=== PATIENT | female | born 1965 | race Caucasian/White ===

== ENCOUNTER 2017-05-04 21:19 | Emergency (ER) | payer BC, OTHER ==
[2017-05-04] MEDS ORDERED: Orphenadrine Citrate 60 MG/2 ML VIAL ONE (21:53)
[2017-05-04] MEDS ORDERED: Ketorolac Tromethamine 60 MG/2 ML VIAL ONE (21:53)
== END 2017-05-04 22:15 | disposition home or self-care (01) ==
LOC: NAV ERS 21:19
DX: M54.5 Low back pain (principal); F41.9 Anxiety disorder, unspecified; Z79.899 Other long term (current) drug therapy
CPT/HCPCS: 96372; J1885; J2360

== ENCOUNTER 2020-07-02 19:06 | Emergency (ER) | payer BC, MEDICARE ==
[2020-07-02] MEDS ORDERED: Adacel (T-DAP) 0.5 ML SYRINGE ONE (19:28)
== END 2020-07-02 19:42 | disposition home or self-care (01) ==
LOC: NAV ERS 19:06
DX: S01.81XA Laceration without foreign body of other part of head, initial encounter (principal); F41.9 Anxiety disorder, unspecified; Z79.899 Other long term (current) drug therapy; W19.XXXA Unspecified fall, initial encounter
CPT/HCPCS: 90715

== ENCOUNTER 2020-07-02 21:12 | Emergency (ER) | payer MEDICARE ==
[2020-07-02] MEDS ORDERED: Lidocaine 1% w/Epinephrine 1:100K 30 ML VIAL ONE (21:20)
[2020-07-02] MEDS ORDERED: Lidocaine 1% (PF) 30 ML VIAL ONE (21:33)
[2020-07-02] MEDS ORDERED: Bacitracin 1 PK ONE (21:52)
== END 2020-07-02 21:52 | disposition home or self-care (01) ==
LOC: NAV ERS 21:12
DX: S01.81XA Laceration without foreign body of other part of head, initial encounter (principal); F41.9 Anxiety disorder, unspecified; Z79.899 Other long term (current) drug therapy
CPT/HCPCS: 12013; 90471; 90715; J2001

== ENCOUNTER 2021-02-17 19:48 | Emergency (ER) | payer MEDICARE ==
[2021-02-17] MEDS ORDERED: Acetaminophen/Codeine 30-300mg Tablet ONE (20:08)
== END 2021-02-17 21:00 | disposition home or self-care (01) ==
LOC: NAV ERS 19:48
DX: S83.91XA Sprain of unspecified site of right knee, initial encounter (principal); S80.01XA Contusion of right knee, initial encounter; M79.7 Fibromyalgia; Z79.899 Other long term (current) drug therapy; W19.XXXA Unspecified fall, initial encounter

== ENCOUNTER 2021-06-06 03:51 | Emergency (ER) | payer MEDICARE ==
[2021-06-06 04:16] LABS: Hemoglobin 13.3 g/dL (12.0-16.0); Mean Corpuscular HGB CONC 30.5 g/dL (32.0-36.0); Mean Corpuscular Hemoglobin 28.7 pg (27.0-31.0); Mean Corpuscular Volume 94.2 fL (78.0-98.0); Mean Platelet Volume 13.2 fL (7.4-10.4); Platelet Count 219 thou/uL (130-400); RBC Distribution Width 13.5 % (11.5-14.5); Red Blood Cell (RBC) Count 4.65 mill/uL (4.20-5.40); White Blood Cell (WBC) Count 10.5 thou/uL (4.8-10.8)
[2021-06-06 04:19] LABS: Bilirubin Negative (Negative); Blood, Urine Large (Negative); Clarity Slightly Cloudy (Clear); Glucose, Urine (Dipstick) Negative (Negative); Ketone, Urine Trace mg/dL (Negative); Leukocyte Negative (Negative); Nitrite Negative (Negative); Protein, Urine (Dipstick) 100 mg/dL (Neg-Trace); Specific Gravity, Urine 1.026 (1.002-1.036); Urobilinogen 0.2 mg/dL (Less than 2); pH, Urine 5.5 (5.0-9.0)
[2021-06-06 04:21] LABS: Bacteria/HPF Rare-Few HPF (None Seen); RBC/HPF Greater than 50 HPF (0-3); Squamous Epithelial 0-3 HPF (0-3); WBC/HPF 0-3 HPF (0-3)
[2021-06-06 04:22] LABS: Calcium Oxalate Crystals Rare HPF (None Seen); Yeast-Budding 2+ HPF (None Seen)
[2021-06-06 04:25] LABS: #Basophils 0.1 thou/uL (0.0-0.2); #Eosinphils 0.2 thou/uL (0.0-0.7); #Lymphocytes 3.8 thou/uL (1.20-3.40); #Monocytes 0.6 thou/uL (0.11-0.59); #Neutrophils 5.8 thou/uL (1.40-6.50); %Basophils 0.8 % (0.0-1.0); %Eosinophils 1.9 % (0.0-10.0); %Monocytes 5.4 % (0.0-10.0); %Neutrophils 55.8 % (42.0-75.0); Platelet Morphology Comment Appears Adequate; RBC Morphology Normal
[2021-06-06] MEDS ORDERED: Morphine 4 MG/ML VIAL ONE (04:26)
[2021-06-06] MEDS ORDERED: Sodium Chloride 0.9% 1,000 ML ONE (04:26)
[2021-06-06 04:28] LABS: ALT (SGPT) 20 U/L (8-55); AST (SGOT) 16 U/L (5-34); Albumin 4.1 g/dL (3.5-5.0); Alkaline Phosphatase 123 U/L (40-110); Anion Gap 16 mmol/L (10-20); BUN (Urea Nitrogen) 16 mg/dL (9.8-20.1); Bilirubin, Total 0.2 mg/dL (0.2-1.2); Calc. Creatinine Clearance 0 mL/min (70-130); Calcium 9.6 mg/dL (7.8-10.44); Carbon Dioxide 23 mmol/L (22-29); Chloride 107 mmol/L (98-107); Globulin 3.6 g/dL (2.4-3.5); Glucose 135 mg/dL (70-105); Potassium 4.2 mmol/L (3.5-5.1); Protein, Total 7.7 g/dL (6.0-8.3); Sodium 142 mmol/L (136-145)
[2021-06-06] MEDS ORDERED: Ondansetron PF 4 MG/2 ML Vial ONE (04:34)
[2021-06-06] MEDS ORDERED: Ketorolac Tromethamine 30 MG/ML VIAL ONE (04:34)
[2021-06-06] MEDS ORDERED: Lidocaine 2 gm/D5W 500 ml 0 ML ONE (05:13)
[2021-06-06] MEDS ORDERED: Lidocaine 2% PF 100 mg/5 ml Syringe ONE (05:16)
== END 2021-06-06 05:54 | disposition home or self-care (01) ==
LOC: NAV ERS 03:51
DX: N13.2 Hydronephrosis with renal and ureteral calculous obstruction (principal); E03.9 Hypothyroidism, unspecified; Z79.899 Other long term (current) drug therapy
CPT/HCPCS: 74176; 80053; 81003; 81015; 85025; 87086; 96374; 96375; J1885; J2001; J2270; J2405; J7050